=== PATIENT | female | born 2000 | race Hispanic/Latino ===

== ENCOUNTER 2021-06-09 14:49 | Emergency (ER) | payer OTHER, SELFPAY ==
[2021-06-09 15:38] LABS: Bilirubin Neg (Negative); Blood, Urine 250 (Negative); Clarity Slightly Cloudy (Clear); Glucose, Urine (Dipstick) Normal (Negative); Ketone, Urine Negative (Negative); Leukocyte Negative (Negative); Nitrite Negative (Negative); Protein, Urine (Dipstick) 15 mg/dl (Neg-Trace); Specific Gravity, Urine 1.015 (1.002-1.036); Urobilinogen Normal mg/dL (Less than 2)
[2021-06-09 15:48] LABS: Bacteria/HPF Rare-Few HPF (None Seen); RBC/HPF Greater than 50 HPF (0-3); Squamous Epithelial 0-3 HPF (0-3); WBC/HPF 0-3 HPF (0-3)
[2021-06-09 16:03] LABS: #Eosinphils 0.2 10x3/uL (0.0-0.5); #Monocytes 0.9 10x3/uL (0.0-1.1); #Neutrophils 5.2 10x3/uL (1.5-8.4); %Basophils 0.3 % (0.0-2.0); %Eosinophils 1.9 % (0.0-6.0); %Lymphocytes 29.5 % (18.0-47.0); %Monocytes 9.7 % (0.0-10.0); %Neutrophils 58.5 % (40.0-75.0); Hemoglobin 12.2 g/dL (12.0-15.5); Mean Corpuscular HGB CONC 32.1 g/dL (32.0-36.0); Mean Corpuscular Hemoglobin 27.6 pg (27.0-33.0); Mean Platelet Volume 9.3 fl (7.4-10.4); Platelet Count 320 10x3/uL (150-450); RBC Distribution Width 13.8 % (11.5-14.5); Red Blood Cell (RBC) Count 4.42 10x6/uL (3.90-5.03)
== END 2021-06-09 18:15 | disposition home or self-care (01) ==
LOC: CSHERS 14:49
DX: O03.4 Incomplete spontaneous abortion without complication (principal)
CPT/HCPCS: 36415; 76856; 81003; 81015; 84702; 85025; 86900; 86901; 88305

== ENCOUNTER 2022-03-11 21:31 | Emergency (ER) | payer OTHER ==
[2022-03-11 22:00] LABS: Bilirubin 1+ (Negative); Blood, Urine 250 (Negative); Clarity Sl. Cloudy (Clear); Glucose, Urine (Dipstick) Normal (Negative); Ketone, Urine Negative (Negative); Leukocyte 100 (Negative); Nitrite Negative (Negative); Protein, Urine (Dipstick) 15 mg/dl (Neg-Trace); Specific Gravity, Urine 1.025 (1.005-1.030); Urobilinogen Normal mg/dL (Less than 2)
[2022-03-11 22:01] LABS: Pregnancy Test - Urine (BHCG) Negative (Negative); Pregu Control Background? CLEAR/WHITE (CLR/WHITE); Pregu Control Bar Appear? YES (CONTROL BAR); Specific Gravity 1.025 (1.002-1.036)
[2022-03-11 22:07] LABS: Bacteria/HPF 1+ HPF (None Seen); Mucous/LPF 1+ LPF (<2+)
[2022-03-11] MEDS ORDERED: Ondansetron ODT 4 MG TAB ONE (22:44)
== END 2022-03-11 22:47 | disposition home or self-care (01) ==
LOC: CSHERS 21:31
DX: N10 Acute pyelonephritis (principal)
CPT/HCPCS: 81003; 81015; 81025; 87086; 99284; Q0162

== ENCOUNTER 2022-08-02 10:23 | Emergency (ER) | payer OTHER ==
[2022-08-02 11:59] LABS: SARS-CoV-2 NAA Rapid Test Not Detected (NotDetected)
== END 2022-08-02 12:41 | disposition home or self-care (01) ==
LOC: CSHERS 10:23
DX: O99.891 Other specified diseases and conditions complicating pregnancy (principal); R05.9 Cough, unspecified; Z3A.20 20 weeks gestation of pregnancy
CPT/HCPCS: 71045

== ENCOUNTER 2022-08-20 13:32 | Outpatient (CLI) | payer OTHER | END 2022-08-20 13:33 | disposition home or self-care (01) | LOC: CSHULT 13:32 | PROVIDERS: ATTEND Family Medicine | DX: Z34.82 Encounter for supervision of other normal pregnancy, second trimester (principal); Z3A.22 22 weeks gestation of pregnancy | CPT/HCPCS: 76805 ==

== ENCOUNTER 2022-12-02 00:38 | Inpatient (IN) | payer MEDICAID, OTHER ==
[2022-12-02] MEDS ORDERED: fentaNYL 50 mcg/mL 1 mL Vial SLOW IVP PRN (01:29)
[2022-12-02] MEDS ORDERED: Carboprost 250 MCG/ML AMP IM PRN (01:29)
[2022-12-02] MEDS ORDERED: Docusate 100 MG CAP PO PRN (01:29)
[2022-12-02] MEDS ORDERED: Diphenoxylate HCl/Atropine Tablet PO PRN (01:29)
[2022-12-02] MEDS ORDERED: Methylergonovine 0.2 MG/ML VIAL IM PRN (01:29)
[2022-12-02] MEDS ORDERED: hydrALAZINE 20 MG/ML VIAL SLOW IVP PRN ×2 (01:29→06:23)
[2022-12-02] MEDS ORDERED: Lidocaine 1% (PF) 30 ML VIAL SC PRN (01:29)
[2022-12-02] MEDS ORDERED: Promethazine HCl 25 MG/ML VIAL IM PRN (01:29)
[2022-12-02] MEDS ORDERED: Misoprostol 200 MCG TAB PR PRN (01:29)
[2022-12-02] MEDS ORDERED: Tranexamic Acid 1,000 MG/10 ML VIAL IVP PRN (01:29)
[2022-12-02] MEDS ORDERED: Ondansetron PF 4 MG/2 ML Vial IVP PRN ×2 (01:29→06:23)
[2022-12-02] MEDS ORDERED: Acetaminophen 500 MG TAB PO PRN (01:29)
[2022-12-02] MEDS ORDERED: Ibuprofen 800 MG TAB PO PRN (01:29)
[2022-12-02] MEDS ORDERED: NS w/ Oxytocin 30 units 500 ML IV SCH ×3 (01:30→06:23)
[2022-12-02] MEDS ORDERED: Lactated Ringer's 1,000 ML IV SCH (01:30)
[2022-12-02 02:20] LABS: Hematocrit 39.5 % (34.9-44.5); Hemoglobin 13.1 g/dL (12.0-15.5); Mean Corpuscular HGB CONC 33.2 g/dL (32.0-36.0); Mean Corpuscular Hemoglobin 27.7 pg (27.0-33.0); Mean Corpuscular Volume 83.5 fl (81.6-98.3); Mean Platelet Volume 10.2 fl (7.4-10.4); Platelet Count 303 10x3/uL (150-450); RBC Distribution Width 17.6 % (11.5-14.5); Red Blood Cell (RBC) Count 4.73 10x6/uL (3.90-5.03); White Blood Cell (WBC) Count 12.8 10x3/uL (3.5-10.5)
[2022-12-02] MEDS ORDERED: fentaNYL/Ropivacaine Epidural 0 ML ONE (02:34)
[2022-12-02 02:52] LABS: HBSAg Index 0.15 S/CO (0-0.99); Hep B Surf Ag - L&D Non-Reactive S/CO (NonReactive); Syphilis Antibody Nonreactive (Nonreactive); Syphilis Antibody Index 0.06 S/CO (<1.00 Non-Reactive)
[2022-12-02 05:50] VITALS: BMI 33.5
[2022-12-02] MEDS ORDERED: Preparation H Ointment 28 GM TUBE PR PRN (06:23)
[2022-12-02] MEDS ORDERED: Lanolin Ointment 7 GM TUBE TOP PRN (06:23)
[2022-12-02] MEDS ORDERED: HYDROcodone/Acetaminophen 5/325 mg Tablet PO PRN (06:23)
[2022-12-02] MEDS ORDERED: Milk Of Magnesia 30 ML UDCUP PO PRN (06:23)
[2022-12-02] MEDS ORDERED: Benzocaine-Menthol 82.5 ML CAN TOP PRN (06:23)
[2022-12-02] MEDS ORDERED: Boostrix 0.5 ML (Tdap) VIAL (>/=7 yrs of age) IM ONE (06:23)
[2022-12-02] MEDS ORDERED: Bisacodyl 10 MG SUPP PR PRN (06:23)
[2022-12-02] MEDS ORDERED: diphenhydrAMINE 25 MG CAP PO PRN (06:23)
[2022-12-02] MEDS: Ibuprofen 800 MG TAB PO SCH ×3 (07:45→21:31)
[2022-12-02] MEDS: Ferrous Sulfate 325 MG TAB PO SCH ×2 (07:46→14:56)
[2022-12-02] MEDS: Docusate 100 MG CAP PO SCH ×2 (09:09→21:31)
[2022-12-02] MEDS: Prenatal Vitamin 1 TAB PO SCH (09:09)
[2022-12-03] MEDS: Ibuprofen 800 MG TAB PO SCH ×2 (05:37→13:46)
[2022-12-03] MEDS: Docusate 100 MG CAP PO SCH (08:03)
[2022-12-03] MEDS: Prenatal Vitamin 1 TAB PO SCH (08:03)
[2022-12-03] MEDS: Ferrous Sulfate 325 MG TAB PO SCH (13:48)
[2022-12-03 16:15] VITALS: BP 133/80; TEMP 98.7
== END 2022-12-03 17:05 | disposition home or self-care (01) | DRG 807 ==
LOC: CSHLD/OP 00:38 → CSHLD 01:53 → CSHPP 06:10
PROVIDERS: ADMIT Family Medicine; ATTEND Family Medicine
PROC: 10E0XZZ Delivery of Products of Conception, External Approach (ICD-10-PCS; principal; 2022-12-02)
PROC: 0KQM0ZZ Repair Perineum Muscle, Open Approach (ICD-10-PCS; 2022-12-02)
DX: O70.1 Second degree perineal laceration during delivery (principal); Z37.0 Single live birth; Z3A.37 37 weeks gestation of pregnancy
CPT/HCPCS: 85027; 86780; 86850; 86900; 86901; 87340; 99285